=== PATIENT | male | born 1995 | race Caucasian/White ===

== ENCOUNTER 2017-07-11 04:49 | Emergency (ER) | payer SELFPAY ==
[2017-07-11 04:49] VITALS: BP 193/98; PULSE 109; RESP 20; TEMP 36.9; O2SAT 99; BMI 53.4
--- NOTE | 2017-07-11 05:03 | RAD_ITS ---
STUDY: X-RAY - RIGHT FOOT History: Fell a few days ago, bruising laterally. TECHNIQUE: 3 view(s) of the foot. COMPARISON: None. FINDINGS: Normal talus, calcaneus, and tarsal bones. Acute oblique minimally displaced distal fibular fracture with adjacent soft tissue swelling. Normal visualized subtalar, talonavicular, calcaneocuboid, tarsal and tarsometatarsal articulations. Normal metatarsi. Normal metatarsophalangeal joint of the great toe. Normal tibial and fibular sesamoid bones. Normal interphalangeal joint of the great toe. Normal phalanges of the great toe. Normal second through fifth metatarsophalangeal joints. Normal interphalangeal joints and phalanges of the lesser toes. Soft tissue swelling noted along the anterior ankle and forefoot. RAD/Foot min 3 Views IMPRESSION: Acute distal fibular fracture with soft tissue swelling. Diffuse soft tissue swelling. Electronically Signed: Cori Albert MD at 5:30 EST , Service support ,
--- NOTE | 2017-07-11 05:03 | RAD_ITS ---
STUDY: X-RAY - RIGHT ANKLE REASON FOR EXAM: Male, 22 years old. Fell a few days ago, bruising laterally. TECHNIQUE: 3 view(s) of the ankle. COMPARISON: None. FINDINGS: Acute oblique fracture of the distal fibula with minimal posterior displacement and adjacent soft tissue swelling. Normal medial and lateral malleoli. Normal tibiotalar articulation and ankle mortise. Normal visualized talus and calcaneus. The visualized subtalar, talonavicular, calcaneocuboid and tarsal articulations are normal. The soft tissue structures are unremarkable. RAD/Ankle min 3 Views IMPRESSION: Minimally displaced acute oblique distal fibular fracture with soft tissue swelling. Electronically Signed: Cori Albert MD at 5:28 EST , Service support ,
--- NOTE | 2017-07-11 05:40 | ED.VISSUMM ---
- ER Visit Summary Date of Service: 07/11/17 Chief Complaint: [Right ankle pain] History of Present Illness: The patient is a 22 M [resents to the emergency department 2 days after right ankle injury. He stepped in the mud and twisted his ankle while his foot was planted. He has been able to ambulate but it is painful. He is noted increasing swelling and bruising. He does have some tingling in his toes. He goes away when he rests and elevates] Physical Examination: [] Blood pressure elevated 193/98 heart rate 109 Examination of the right lower extremity reveals no proximal fibular tenderness no knee tenderness he does have tenderness and swelling over the lateral malleolus and proximal to the lateral malleolus, there is diffuse swelling of the lateral foot and ankle, there is a small amount of swelling and ecchymosis just under the medial malleolus he has brisk distal cap refill strong DP pulses Test Results: [] Emergency Department Course and Treatment: [X-rays of the ankle and foot show a Setvens B distal fibular fracture with little to no widening of the mortise. Patient was placed and a tall walking boot however because of the location in the fracture and the risk for disruption of the mortise I did advise that he be nonweightbearing until he follows up with orthopedics. He did not want anything for pain. He will ice and keep it elevated. He understands the importance of orthopedic follow-up Treatment Plan: [] Disposition: [Discharge] Impression: [Right distal fibula fracture] This note was generated with [employer] dictation software. It may contain incorrect words, spelling, and punctuation that were not noted in review of the chart prior to signing ED Disposition - Plan for ED Patient: Chief Complaint: Lower Extremity Injury Referrals: Kushal Forrest [Primary Care Provider] -
--- NOTE | 2017-07-11 05:43 | ED.DEP ---
ED Disposition - Plan for ED Patient: Chief Complaint: Lower Extremity Injury Instructions: ED Fx Lower Ext Referrals: Willard Gupta MD [STAFF PHYSICIAN] - 07/14/17 Additional Instructions: Hilda Patel right distal fibula fracture
[2017-07-11 06:16] VITALS: RESP 16
== END 2017-07-11 07:05 | disposition home or self-care (01) ==
LOC: ED 04:57
PROVIDERS: Emergency Provider Emergency Medicine
DX: S82.831A Other fracture of upper and lower end of right fibula, initial encounter for closed fracture (principal); X50.1XXA Overexertion from prolonged static or awkward postures, initial encounter; Y93.9 Activity, unspecified; Y92.89 Other specified places as the place of occurrence of the external cause; Y99.9 Unspecified external cause status
CPT/HCPCS: 73610; 73630; 99284